=== PATIENT | male | born 1930 | race Caucasian/White ===

== ENCOUNTER 2017-07-16 19:40 | Emergency (ER) | payer OTHER ==
[~2017-07-16] VITALS: Ht 175.3 cm; Wt 80.5 kg
[~2017-07-16 19:40] MED LIST: ADVIL200 MG PO; BREWER'S YEAST500 MG PO; LISINOPRIL5 MG PO; NIFEDIPINE ER60 MG PO; PLAVIX75 MG PO; SERTRALINE HCL50 MG PO
[2017-07-16 23:00] VITALS: BP 142/89
== END 2017-07-16 23:11 | disposition home or self-care (01) ==
LOC: EME 19:40
DX: S06.0X0A Concussion without loss of consciousness, initial encounter (principal); S00.03XA Contusion of scalp, initial encounter; S80.212A Abrasion, left knee, initial encounter; S60.311A Abrasion of right thumb, initial encounter; W18.30XA Fall on same level, unspecified, initial encounter; Y93.K1 Activity, walking an animal; Y92.480 Sidewalk as the place of occurrence of the external cause; I13.0 Hypertensive heart and chronic kidney disease with heart failure and stage 1 through stage 4 chronic kidney disease, or unspecified chronic kidney disease; I50.9 Heart failure, unspecified; N18.9 Chronic kidney disease, unspecified; E78.5 Hyperlipidemia, unspecified; K21.9 Gastro-esophageal reflux disease without esophagitis; Z79.02 Long term (current) use of antithrombotics/antiplatelets
CPT/HCPCS: 70450; 72125; 99281; 99284